=== PATIENT | female | born 1985 | race Caucasian/White ===

== ENCOUNTER 2021-03-24 12:03 | Emergency (ER) | payer SELFPAY ==
[2021-03-24 12:10] VITALS: BP 126/88; PULSE 93; RESP 16; TEMP 36.6; O2SAT 98; BMI 28.3
--- NOTE | 2021-03-24 12:20 | W.ED.ABDPA2 ---
HPI - Abdominal Pain General: Chief Complaint: Abdominal Pain Stated Complaint: ABD Pain Time Seen by Provider: 03/24/21 12:20 History of Present Illness: MD elicited complaint: abdominal pain Onset (ago): day(s) (2.5) Pain Consistency: intermittent Location: RLQ Severity: moderate Quality: aching Migration to: no migration Associated Symptoms: Reports change in stool character and diarrhea; Denies chills and fever(s) Related Data: Date of Last Menstrual Period: 03/12/21 Review of Systems Const: Denies: fever(s) or chills GI: Reports: diarrhea and change in stool character : Denies: difficulty voiding PENDING SALE TO [facility] Female Reproductive History: Date of last menstrual period: 03/12/21 Physical Exam Const: COMMON NORMALS: no acute distress, patient oriented x3, no limitations and alert GENERAL APPEARANCE: cooperative and comfortable ORIENTATION/CONSCIOUSNESS: Yes awake, Yes oriented to person, Yes oriented to place and Yes oriented to time HENMT: COMMON NORMALS: normocephalic, atraumatic, external ears normal, EAC's normal, TM's normal bilaterally and Normal external nose present HEAD & SCALP: normal to inspection, normocephalic and atraumatic FACE & SINUS: normal facial exam, sinuses nontender and face symmetric NOSE: Normal external nose present, Normal nares present and No nasal discharge present EXTERNAL EAR: Yes external ears normal EXTERNAL AUDITORY CANAL: EAC's normal TYMPANIC MEMBRANE: TM's normal bilaterally MOUTH: Normal oral and palatal mucosa present, lip normal and tongue normal THROAT: posterior oropharynx normal, tonsils normal and uvula midline Eye: COMMON NORMALS: Equal, round and reactive pupils present, EOMs intact bilaterally and conjunctivae normal GENERAL EYE: appearance normal, both eyes and all related structures and normal light reflex EYELID: eyelids normal CONJUNCTIVA: Yes conjunctivae normal PUPIL: Yes Equal, round and reactive pupils present EOM: Yes EOM abnormal DIRECT OPHTHALMOSCOPY: Yes normal light reflex Neck/C-Spine: COMMON NORMALS: full ROM, no lymphadenopathy, supple, no meningeal signs, no JVD and Thyroid normal GENERAL: Yes normal visual inspection THYROID: Thyroid normal CERVICAL SPINE: Yes cervical ROM normal and Yes normal cervical lordosis Lymph: LYMPHATIC: no lymphadenopathy noted Chest: COMMONS NORMALS: normal inspection of the chest and normal palpation of entire chest wall Resp: COMMON NORMALS: normal respiratory effort, No retractions and clear to auscultation bilaterally AUSCULTATION: clear to auscultation bilaterally Cardio: COMMON NORMALS: no JVD, regular rate, regular rhythm, S1 normal heart sound present, S2 normal heart sound present, No gallops present (Cardio), No clicks present (Cardio), No murmurs present (Cardio), No rub (Cardio) and Peripheral pulses 2+ throughout RATE: regular rate RHYTHM: regular rhythm HEART SOUNDS: S1 normal heart sound present and S2 normal heart sound present PERIPHERAL PULSES: Peripheral pulses 2+ throughout GI: COMMON NORMALS: Normal to inspection, nondistended, normoactive bowel sounds present, Soft to palpation, non-tender and no masses PALPATION: Yes Soft to palpation, Yes Tenderness to palpation present (GI) Details: RLQ, Yes Guarding due to palpation present (GI) in the RLQ and Yes Rebound tenderness present : COMMON NORMALS: Yes no CVA tenderness and Yes normal external appearance BLADDER/KIDNEY EXAM: Yes no CVA tenderness Back/Pelvis: COMMON NORMALS: no CVA tenderness, thoracic and lumbar spine normal to inspection, no thoracic nor lumbar tenderness and thoraco-lumbar ROM normal Extremity: COMMON NORMALS: normal to inspection, full ROM, capillary refill normal, no joint enlargement, no clubbing, cyanosis or edema, no calf tenderness and no pedal edema GENERAL: Yes normal exam except as noted Neuro: COMMON NORMALS: patient oriented x3, moves all extremities, no focal motor deficits, no sensory deficits noted and gait normal SENSORIUM/ORIENTATION: Yes alert, Yes oriented to person, Yes oriented to place and Yes oriented to time MENINGEAL SIGNS: Yes no meningeal signs Psych: COMMON NORMALS: mental status grossly normal, Normal thought process present, cooperative, normal affect, speech normal and activity/motor behavior normal SPEECH: Yes normal speech THOUGHT PROCESS: Normal thought process present Skin: COMMON NORMALS: no rashes or lesions noted, no wounds and turgor normal GENERAL SKIN EXAM: no rashes or lesions noted and turgor normal Course ED course: Pt presents to ER with complaints of RLQ pain increasing since Sunday. She states as long as she remains still her pain subsides but with movement it intensifies. She remains rigid and sitting up while examining. Notes lose stools. She is 2 weeks from period. Does not deny chance of . Labs and imaging ordered. Pt denies pain intervention at this time. Reevaluation(s): Reevaluation #1: CT ordered of abd and pelvis as appendix was not appreciated during US. Time: 14:39 Reevaluation #2: Pt CT shows 2mm calcification of the right UV junction which could correlate to her pain. However, a secondary finding is Right lower lobe pneumonia and small infiltrate of the left lung. We will proceed with tx for pneumonia as this could be an atypical presentation with RLQ pain on exertion; or a result of a renal stone. Proceed with DC. Close follow up with PCP. Time: 16:10 Vital Signs: Vital signs: Vital Signs Temperature 97.9 F 03/24/21 12:10 Pulse Rate 93 03/24/21 12:10 Respiratory Rate 16 03/24/21 12:10 Blood Pressure 126/88 03/24/21 12:10 Pulse Oximetry 98 03/24/21 12:10 MDM - Abdominal Pain Lab Data: Labs: Lab Results 03/24/21 03/24/21 03/24/21 12:57 12:57 14:07 WBC 6.2 10^3/uL 10^3/ uL (4.0-10.0) RBC 4.84 10^6/uL 10^6 /uL (4.1-5.3) Hgb 14.0 g/dL g/dL (11.5-15.3) Hct 42.3 % % (37.0-47.0) MCV 87.4 fl fl (81-99) MCH 28.9 pg pg (28.0-34.0) MCHC 33.1 g/dL g/dL (30.0-36.0) RDW 12.2 % % (12.1-15.1) Plt Count 147 10^3/cmm 10^3 /cmm (130-400) MPV 10.9 fL H fL (7.4-10.4) Neut % (Auto) 68.8 % % Lymph % (Auto) 22.7 % % [place] % (Auto) 6.5 % % Eos % (Auto) 1.3 % % Baso % (Auto) 0.2 % % Neut # (Auto) 4.26 10^3/uL 10^3 /uL (1.8-7.7) Lymph # (Auto) 1.4 10^3/uL 10^3/ uL (0.8-4.8) [place] # (Auto) 0.4 10^3/uL 10^3/ uL (0.2-0.9) Eos # (Auto) 0.1 10^3/uL 10^3/ uL (0.0-0.8) Baso # (Auto) 0.0 10^3/uL 10^3/ uL (0.0-0.1) Nucleated RBC % (a uto) 0 % % Nucleated RBCs # 0.0 /100WBC /100W BC Sodium Potassium Chloride Carbon Dioxide Anion Gap BUN Creatinine GFR Calculation Glucose Calculated Osmolal ity Calcium Total Bilirubin AST ALT Alkaline Phosphata se C-Reactive Protein Total Protein Albumin Globulin Amylase Lipase HCG, Qual Negative (Negative) Urine Color Yellow (Yellow) Urine Appearance Cloudy (CLEAR) Urine pH 6 (5-7) Ur Specific Gravit y 1.020 (1.005-1.030) Urine Protein Neg (Negative) Urine Glucose (UA) Norm (Normal) Urine Ketones 2+ H (Negative) Urine Blood Neg (Negative) Urine Nitrate Negative (Negative) Urine Bilirubin Neg (Negative) Urine Urobilinogen Norm mg/dL mg/dL (Negative) Ur Leukocyte Dayana ase Trace H (Negative) Urine RBC None /hpf /hpf (0-2) Urine WBC 0-4 /hpf H /hpf (0-5) Ur Squamous Epith Cells None /hpf /hpf (0-5) Amorphous Sediment 4+ /hpf /hpf Urine Bacteria None /hpf /hpf (NONE) 03/24/21 14:07 WBC RBC Hgb Hct MCV MCH MCHC RDW Plt Count MPV Neut % (Auto) Lymph % (Auto) [place] % (Auto) Eos % (Auto) Baso % (Auto) Neut # (Auto) Lymph # (Auto) [place] # (Auto) Eos # (Auto) Baso # (Auto) Nucleated RBC % (a uto) Nucleated RBCs # Sodium 141 mmol/L mmol/L (136-145) Potassium 3.8 mmol/L mmol/L (3.5-5.1) Chloride 104 mmol/L mmol/L (98-107) Carbon Dioxide 25 mmol/L mmol/L (22-29) Anion Gap 15.8 (5-19) BUN 6 mg/dL mg/dL (6-20) Creatinine 0.7 mg/dL mg/dL (0.5-0.9) GFR Calculation 94.2 mL/min mL/mi n (90-130) Glucose 79 mg/dL mg/dL (65-115) Calculated Osmolal ity 289 mOsm/kg mOsm/ kg (285-295) Calcium 8.2 mg/dL L mg/dL (8.5-10.5) Total Bilirubin 0.4 mg/dL mg/dL (0.15-1.2) AST 14 U/L U/L (0-32) ALT 14 U/L U/L (0-33) Alkaline Phosphata se 49 IU/L IU/L (35-105) C-Reactive Protein 44.9 mg/L H mg/L (0.0-4.9) Total Protein 6.8 g/dL g/dL (6.6-8.7) Albumin 4.1 g/dL g/dL (3.5-5.2) Globulin 2.7 g/dL g/dL (1.3-4.6) Amylase 41 U/L U/L (28-100) Lipase 13 U/L U/L (13-60) HCG, Qual Urine Color Urine Appearance Urine pH Ur Specific Gravit y Urine Protein Urine Glucose (UA) Urine Ketones Urine Blood Urine Nitrate Urine Bilirubin Urine Urobilinogen Ur Leukocyte Dayana ase Urine RBC Urine WBC Ur Squamous Epith Cells Amorphous Sediment Urine Bacteria Imaging Data ^: US: Radiologist's impression: [address] [address] Ultrasound Report Signed Patient: Jeniffer De Los Santos Unit #: [id number] : 1985 Age/Sex: 36 / F ADM Date: 03/24/21 Loc: ER Room/Bed: Attending Dr: Ordering Provider/Ordering MD: Micaela Monsalve NP Date of Service: 03/24/21 Procedure(s): US appendix 52534 Accession Number(s): [id number] Report Number: [id number] WS: [id number] Ultrasound abdomen, limited. History: RIGHT lower quadrant pain. Comparison: None. Ultrasound is directed to the RIGHT lower quadrant in the area of pain. There is a very low attenuation tubular structure in the RIGHT lower quadrant. There is some increased vascularity. This does not have the appearance of a typical appendicitis. This is a very elongated loop of probable small bowel. There is mild fluid distention with a few minimally mobile echoes. No adjacent free fluid. There is no fluid in Morison's pouch. The appendix is not identified. US/US appendix [id number] IMPRESSION: 1. The appendix is not definitely identified. 2. There is a very elongated tubular area of decreased echogenicity in the RIGHT lower quadrant. Not a typical appearance for appendicitis. This may be an aperistaltic small bowel loop. Recommend follow-up CT abdomen and pelvis with contrast. Dictated By: Milvia Eugene DO Signed By: Milvia Eugene DO Signed Date/Time: 03/24/211424 DD/ 22 CT Abd/Pel: Radiologist's impression: [address] [address] [address] Scan Report Signed Patient: Jeniffer De Los Santos Unit #: [id number] : 1985 Age/Sex: 36 / F ADM Date: 03/24/21 Loc: ER Room/Bed: Attending Dr: Ordering Provider/Ordering MD: Micaela Monsalve NP Date of Service: 03/24/21 Procedure(s): CT abdomen pelvis w con* [id number] Accession Number(s): [id number] Report Number: [id number] WS: [id number] CT ABDOMEN AND PELVIS WITH CONTRAST HISTORY: RLQ pain TECHNIQUE: Imaging performed of the abdomen and pelvis with IV contrast. Single phase imaging of the abdomen. Coronal and sagittal reformats are submitted. All CT scans at [facility] use at least one of these dose optimization techniques: automated exposure control; mA and/or kV adjustment per patient size (includes targeted exams where dose is matched to clinical indication); or iterative reconstruction. IV CONTRAST: Omnipaque 300; 95 mL IV. Oral contrast: No DLP: 1237.14 mGy.cm COMPARISON: None available. Lower thorax: RIGHT lower lobe focal pneumonia. There is a very tiny increased opacification at the LEFT lung base. No effusion. Heart is normal size. No hiatal hernia. Liver/biliary system: Normal size with no intrahepatic dilatation. Gallbladder: Normal. No gallstones or wall thickening. No pericholecystic fluid. Pancreas: Normal size pancreas and pancreatic duct. No adjacent inflammation. Spleen: Normal size spleen. No mass or infarct. Adrenal glands: Normal. Right kidney: Too small to characterize hypodensity in the central kidney. No obstruction. Left kidney: Normal. Aorta: Normal. Lymphadenopathy: None. Free fluid: None. GI tract: Normal appendix. No adjacent inflammation. There are mildly prominent small bowel loops in the LEFT lower quadrant. Mild distention of the cecum with feces. No abnormal loops of GI tract. No GI tract obstruction. Abdominal wall: Unremarkable abdominal wall. No hernia. Pelvis: Anteverted uterus is mildly enlarged at approximately 7 cm in length. LEFT measures 3.2 x 2.2 cm. The RIGHT ovary is normal size. There is a very tiny, 2 mm calcification near the LEFT ureterovesical junction. No associated hydronephrosis. Potentially could represent a small calcification at the UV junction. Also may be a phlebolith. Bones: Unremarkable. CT/CT abdomen pelvis w con* [id number] IMPRESSION: 1. Normal appendix. 2. No GI tract obstruction. 3. No renal obstruction. 4. RIGHT lower lobe subsegmental pneumonia. Minimal opacification at the LEFT lung base. Probably developing pneumonia or pneumonitis. 5. 2 mm calcification near the RIGHT UV junction. This could potentially be within the very distal ureter or a phlebolith. Very difficult to determine location based upon its size. Notified Micaela Monsalve at 03/24/2021 3:17 PM. Dictated By: Milvia Eugene DO Signed By: Milvia Eugene DO Signed Date/Time: 03/24/21 1523 Discharge Plan Discharge Patient Disposition: Home Clinical Impression: Calculus of kidney, Abdominal pain, Pneumonia Condition: Stable Prescriptions: New doxycycline hyclate 100 mg capsule 100 mg PO BID 10 Days Qty: 20 RF: 0 Discharge Orders: Discharge ED (Routine); Ordered 03/24/21 Ordered By: Micaela Monsalve Discharge Diet: Advance as tolerated and Clear Liquid Discharge Activity: Increase activity as tolerated Patient Instructions: Abdominal Pain (ED), Opioid Safety Activity Restrictions/Additional Instructions: Please ensure follow up with your primary care provider If you develop worsening in symptoms please return Watch for nausea, vomiting, diarrhea, and fever; increased pain. Strain urine for the next several days to see if stone is passed. Coding Level of Care Code ED Nutrition Services Assistant for Chg Fwd Exam Comprehensive
--- NOTE | 2021-03-24 12:40 | US_ITS ---
WS: [id number] TRANSABDOMINAL PELVIC ULTRASOUND HISTORY: rlq pain COMPARISON: None available. Uterus: 11.3 cm x 7.0 cm x 5.0 cm. Uterus is anteverted and slightly enlarged. Uterus is well visuali zed on transabdominal imaging. No fibroid or mass. Endometrium: 1.0 cm. Normal homogeneity and size. Right ovary: 2.3 cm x 2.5 cm x 2.0 cm; no solid or cystic mass. Normal vascularity. Left ovary: 5.8 cm x 3.2 cm x 4.3 cm; daughter cyst LEFT ovary. Cyst measures 3.0 x 2.3 x 2.7 cm. Nor mal vascularity. No free fluid in the cul-de-sac. US/US pelvic complete* [id number] IMPRESSION: 1. Mildly enlarged anteverted uterus. 2. LEFT ovarian cyst. Maximum diameter 3.0 cm. 3. No free fluid.
--- NOTE | 2021-03-24 12:40 | US_ITS ---
WS: [id number] Ultrasound abdomen, limited. History: RIGHT lower quadrant pain. Comparison: None. Ultrasound is directed to the RIGHT lower quadrant in the area of pain. There is a very low attenuati on tubular structure in the RIGHT lower quadrant. There is some increased vascularity. This does not have the appearance of a typical appendicitis. This is a very elongated loop of probable small bowel. There is mild fluid distention with a few minimally mobile echoes. No adjacent free fluid. There is no fluid in Morison's pouch. The appendix is not identified. US/US appendix [id number] IMPRESSION: 1. The appendix is not definitely identified. 2. There is a very elongated tubular area of decreased echogenicity in the RIG HT lower quadrant. Not a typical appearance for appendicitis. This may be an ap eristaltic small bowel loop. Recommend follow-up CT abdomen and pelvis with con trast.
[2021-03-24 13:14] LABS: HCG Qualitative Urine. Negative (Negative)
[2021-03-24 14:16] LABS: Basophils % 0.2 %; Eosinophils # 0.1 10^3/uL (0.0-0.8); Eosinophils % 1.3 %; Hematocrit 42.3 % (37.0-47.0); Lymphocytes # 1.4 10^3/uL (0.8-4.8); Lymphocytes % 22.7 %; Mean Corpuscular HGB Conc 33.1 g/dL (30.0-36.0); Mean Corpuscular Hemoglobin 28.9 pg (28.0-34.0); Mean Corpuscular Volume 87.4 fl (81-99); Mean Platelet Volume 10.9 fL (7.4-10.4); Monocytes # 0.4 10^3/uL (0.2-0.9); Monocytes % 6.5 %; Neutrophils # 4.26 10^3/uL (1.8-7.7); Neutrophils % 68.8 %; Nucleated Red Blood Cells % 0 %; Platelet Count 147 10^3/cmm (130-400); Red Blood Count 4.84 10^6/uL (4.1-5.3); Red Cell Distribution Width 12.2 % (12.1-15.1); White Blood Count 6.2 10^3/uL (4.0-10.0)
--- NOTE | 2021-03-24 14:32 | CT_ITS ---
WS: [id number] CT ABDOMEN AND PELVIS WITH CONTRAST HISTORY: RLQ pain TECHNIQUE: Imaging performed of the abdomen and pelvis with IV contrast. Single phase imaging of the abdomen. Coronal and sagittal reformats are submitted. All CT scans at [facility] use at [address] one of these dose optimization techniques: automated exposure control; mA and/or kV adjustment per patient size (includes targeted exams where dose is matched to clinical indication); or iterative re construction. IV CONTRAST: Omnipaque 300; 95 mL IV. Oral contrast: No DLP: 1237.14 mGy.cm COMPARISON: None available. Lower thorax: RIGHT lower lobe focal pneumonia. There is a very tiny increased opacification at the L EFT lung base. No effusion. Heart is normal size. No hiatal hernia. Liver/biliary system: Normal size with no intrahepatic dilatation. Gallbladder: Normal. No gallstones or wall thickening. No pericholecystic fluid. Pancreas: Normal size pancreas and pancreatic duct. No adjacent inflammation. Spleen: Normal size spleen. No mass or infarct. Adrenal glands: Normal. Right kidney: Too small to characterize hypodensity in the central kidney. No obstruction. Left kidney: Normal. Aorta: Normal. Lymphadenopathy: None. Free fluid: None. GI tract: Normal appendix. No adjacent inflammation. There are mildly prominent small bowel loops in the LEFT lower quadrant. Mild distention of the cecum with feces. No abnormal loops of GI tract. No G I tract obstruction. Abdominal wall: Unremarkable abdominal wall. No hernia. Pelvis: Anteverted uterus is mildly enlarged at approximately 7 cm in length. LEFT measures 3.2 x 2.2 cm. The RIGHT ovary is normal size. There is a very tiny, 2 mm calcification near the LEFT ureterove sical junction. No associated hydronephrosis. Potentially could represent a small calcification at th e UV junction. Also may be a phlebolith. Bones: Unremarkable. CT/CT abdomen pelvis w con* [id number] IMPRESSION: 1. Normal appendix. 2. No GI tract obstruction. 3. No renal obstruction. 4. RIGHT lower lobe subsegmental pneumonia. Minimal opacification at the LEFT lung base. Probably developing pneumonia or pneumonitis. 5. 2 mm calcification near the RIGHT UV junction. This could potentially be wi thin the very distal ureter or a phlebolith. Very difficult to determine locati on based upon its size. Notified Micaela Monsalve at 03/24/2021 3:17 PM.
[2021-03-24 14:43] LABS: Alanine Aminotransferase 14 U/L (0-33); Albumin Level 4.1 g/dL (3.5-5.2); Alkaline Phosphatase 49 IU/L (35-105); Amylase 41 U/L (28-100); Anion Gap 15.8 (5-19); Aspartate Amino Transferase 14 U/L (0-32); Blood Urea Nitrogen 6 mg/dL (6-20); C Reactive Protein 44.9 mg/L (0.0-4.9); Calcium 8.2 mg/dL (8.5-10.5); Carbon Dioxide 25 mmol/L (22-29); Chloride 104 mmol/L (98-107); Globulin 2.7 g/dL (1.3-4.6); Glomerular Filtration Rate 94.2 mL/min (90-130); Glucose 79 mg/dL (65-115); Lipase 13 U/L (13-60); Osmolality Calculated 289 mOsm/kg (285-295); Potassium 3.8 mmol/L (3.5-5.1); Sodium 141 mmol/L (136-145); Total Bilirubin 0.4 mg/dL (0.15-1.2); Total Protein 6.8 g/dL (6.6-8.7)
[2021-03-24] MEDS: iohexol 300 mg/mL 100 mL Btl IV (14:44)
[2021-03-24 15:56] LABS: Add Urine Microscopic? YES; Bilirubin Urine Neg (Negative); Blood Urine Neg (Negative); Glucose Urine UA Norm (Normal); Ketones Urine 2+ (Negative); Leukocyte Esterase Urine Trace (Negative); Nitrate Urine Negative (Negative); Protein Urine Neg (Negative); Urine Appearance Cloudy (CLEAR); Urine Color Yellow (Yellow); Urobilinogen Urine Norm (Negative); pH Urine 6 (5-7)
[2021-03-24 15:57] LABS: Add Urine Culture? No; Amorphous Sediment Urine 4+ /hpf; WBC Urine 0-4 /hpf (0-5)
[2021-03-24 16:42] VITALS: BP 102/83; PULSE 94; RESP 14; O2SAT 100
== END 2021-03-24 14:26 | disposition home or self-care (01) ==
PROVIDERS: Emergency Provider Nurse Practitioner Family
DX: N20.0 Calculus of kidney (principal); J18.9 Pneumonia, unspecified organism
CPT/HCPCS: 74177; 76705; 76856; 80053; 81001; 81025; 82150; 83690; 85025; 86140; 99283; Q9967

== ENCOUNTER 2023-11-06 16:37 | Inpatient (IN) | payer SELFPAY ==
[2023-11-06] VITALS (10 sets, daily range): BP systolic 126–149; BP diastolic 85–92; PULSE 86–104; RESP 18; BMI 31.2
--- NOTE | 2023-11-06 | USR_ITS ---
NOTE: Report was unsigned for reason: Order was edited. Original Signature date and time was: 11/06/23 @ 1512 ADDENDUM Addendum Dictated By: Addendum Signed By: Signed Date/Time: Addendum Cosigned By: Nickolas Benoit MD 11/07/231455 ADDENDUM Addendum Dictated By: Addendum Signed By: Signed Date/Time: Addendum Cosigned By: Nickolas Benoit MD 11/06/231652 ADDENDUM US/ OB lmt with transvaginal THIS REPORT CONTAINS FINDINGS THAT MAY BE CRITICAL TO PATIENT CARE. The findings were verbally communicated via telephone conference with MARILU DESHPANDE at 4:52 PM CDT on 11/06/2023. The findings were acknowledged and understood. Addendum Dictated By: Nickolas Benoit MD Addendum Signed By: Nickolas Benoit MD Signed Date/Time: 11/07/23 145 Addendum Cosigned By: ADDENDUM US/ OB lmt with transvaginal THIS REPORT CONTAINS FINDINGS THAT MAY BE CRITICAL TO PATIENT CARE. The findings were verbally communicated via telephone conference with MARILU DESHPANDE at 4:52 PM CDT on 11/06/2023. The findings were acknowledged and understood. Addendum Dictated By: Nickolas Benoit MD Addendum Signed By: Nickolas Benoit MD Signed Date/Time: 11/06/231652 Addendum Cosigned By: PROCEDURE INFORMATION: Exam: US , Limited Exam date and time: 11/06/2023 3:12 PM Age: 38 years old Clinical indication: Screening exam; Routine US, uterus; Additional info: Late care, placental location, previa previously noted LABS AND CLINICAL REPORTS: Gestational age (Established): 34 w 3 d Estimated due date (Established): 12/15/2023 TECHNIQUE: Imaging protocol: Real-time ultrasound of the maternal uterus with image documentation. Exam focused on the clinical indication. COMPARISON: US pelvic complete* [id number] 03/24/2021 1:23 PM FINDINGS: Gestation: Intrauterine gestation. heart rate: 135 bpm presentation and position: Breech presentation. Placenta: Anterior placenta. The margin of the placenta appears to cover the internal cervical os. Amniotic fluid index: BANDAR is 21.6 cm. Maximum vertical pocket 6.6 cm. BIOPHYSICAL PROFILE: breathing (BPP): 2/2 gross body movement (BPP): gross body movement: 2/2 tone (BPP): 2/2 heart rate reactivity (BPP): heart rate reactivity: 2/2 MATERNAL: Cervix: Cervical length measures 4.4 cm. US/US OB lmt with transvaginal IMPRESSION: 1. Single live intrauterine gestation in breech presentation. 2. Biophysical profile 10/24. 3. Placenta previa. 4. Normal heart rate. Dictated By: Nickolas Benoit MD Signed By: Nickolas Benoit MD Signed Date/Time: 11/07/23 1456 DD/ 1512 MTDD
--- NOTE | 2023-11-06 15:00 | USR_ITS ---
PROCEDURE INFORMATION: Exam: US , Limited Exam date and time: 11/06/2023 3:12 PM Age: 38 years old Clinical indication: Screening exam; Routine US, uterus; Additional info: Late care, placental location, previa previously noted LABS AND CLINICAL REPORTS: Gestational age (Established): 34 w 3 d Estimated due date (Established): 12/15/2023 TECHNIQUE: Imaging protocol: Real-time ultrasound of the maternal uterus with image documentation. Exam focused on the clinical indication. COMPARISON: US pelvic complete* [id number] 03/24/2021 1:23 PM FINDINGS: Gestation: Intrauterine gestation. heart rate: 135 bpm presentation and position: Breech presentation. Placenta: Anterior placenta. The margin of the placenta appears to cover the internal cervical os. Amniotic fluid index: BANDAR is 21.6 cm. Maximum vertical pocket 6.6 cm. BIOPHYSICAL PROFILE: breathing (BPP): 2/2 gross body movement (BPP): gross body movement: 2/2 tone (BPP): 2/2 heart rate reactivity (BPP): heart rate reactivity: 2/2 MATERNAL: Cervix: Cervical length measures 4.4 cm. US/US OB lmt with transvaginal IMPRESSION: 1. Single live intrauterine gestation in breech presentation. 2. Biophysical profile 10/24. 3. Placenta previa. 4. Normal heart rate.
[2023-11-06 15:09] LABS: Basophils % 0.3 %; Eosinophils # 0.1 10^3/uL (0.0-0.8); Eosinophils % 0.8 %; Hematocrit 41.9 % (36-47); Lymphocytes # 1.6 10^3/uL (0.8-4.8); Mean Corpuscular HGB Conc 35.8 g/dL (30-55); Mean Corpuscular Hemoglobin 31.8 pg (27-33); Mean Platelet Volume 10.6 fL (7.4-10.4); Monocytes # 0.6 10^3/uL (0.2-0.9); Monocytes % 5.7 %; Neutrophils # 7.62 10^3/uL (1.8-7.7); Neutrophils % 76.6 %; Nucleated Red Blood Cells % 0 %; Platelet Count 142 10^3/cmm (157-399); Red Blood Count 4.71 10^6/uL (3.85-5.65); Red Cell Distribution Width 12.5 % (12.1-15.1); White Blood Count 9.95 10^3/uL (3.29-11.43)
--- NOTE | 2023-11-06 15:56 | ANES.PREANE2 ---
Pre-Anesthetic Assessment Height/Weight: Height 1.65 m Weight 85.275 kg Familial anesthetic complications: none Was Beta Flor taken within 24 hours: N/A Was Clonidine taken within 24 hours: N/A Last intake: 0800 Social No alcohol and No tobacco Exam alert, oriented x 3, clear to auscultation bilaterally and regular rate & rhythm Airway Mallampati: Class II Dentition: false Anesthetic Plan ASA status: 2 Anesthesia: Regional (specify below) Other: Multigravida patient with placenta previa, open cervix, and vaginal bleeding Risk of > 500 ml blood loss (7ml/kg in children): Yes, adequate IV access and fluids planned [facility] Anesthesia Female Reproductive History : 8 Data Anesthesia 11/06/23 14:45 Short CBC 11/06/23 Range/Units 14:45 WBC 9.95 (3.29-11.43) 10^3/uL Hgb 15.00 (11.27-16.99) g/dL Hct 41.9 (36-47) % MCV 89.0 (85-98) fl Plt Count 142 L (157-399) 10^3/cmm Neut % (Auto) 76.6 % Neut # (Auto) 7.62 (1.8-7.7) 10^3/uL Cardiac Studies: No Data to Display
[2023-11-06] MEDS: lactated ringers 1,000 ML 999 ML IV (15:57)
[2023-11-06] MEDS: betamethasone susp 6 mg/mL 1 mL (per mL) 12 MG IM (16:37)
--- NOTE | 2023-11-06 16:59 | P.HP_ITS ---
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 The patient is an [facility] woman who began receiving care less than 3 weeks ago. She reached out to her nurse farm worker due to some vaginal bleeding. An ultrasound was performed and she was found to have a grade 1 placenta previa based on an abdominal ultrasound. The nurse farm worker told the patient she is uncomfortable take care of her due to the placenta location and she reach out to me to see if would be willing to care for the patient. I told her that I be willing to evaluate the patient and presumably care of her. I saw the patient in my office today. She once again blood this morning. She could not quantify the amount of blood that occurred. But based on this being her second bleed with a presumed placenta previa, the patient was sent to the hospital for further evaluation. During the evaluation in the hospital, she was found to have a grade 3-4 placenta previa and was noted to have purple blood in the vaginal vault. I discussed with the patient and her the situation and we talked about the probable need of her child to be transferred after delivery. We also discussed the increased capacity of the blood bank in [place] as well given the propensity for placenta previous to bleed. With this information, they agreed to have her transferred to [place] via ground transport only as they do not believe in using helicopters. I let them know that I prefer to transfer via helicopter but since there is no sign of active bleeding I felt it was still reasonable to transfer the patient via ground transport rather than to perform the section here prior to probable transfer the infant. Present Details : 8 Para: 7 Labs Blood type OB HPI: 0 (-) negative Rubella: Immune RPR: Negative GBS: Unknown HBsAG: Negative Review of Systems 2 General: Reports: 10 or more systems reviewed and unremarkable except in HPI and below Const: Reports: fatigue; Denies: fever(s) Eyes: Denies: change in vision Card: Denies: chest pain : Reports: vaginal bleeding Musc: Reports: back pain Gabino/Lymph: Denies: easy bruising Medications/Allergies Home Medications Medication Instructions Recorded Confirmed Last Taken Type No Known Home Medications 11/06/23 11/06/23 Unknown History Allergies Allergy/AdvReac Type Severity Reaction Status Date / Time No Known Allergies Allergy Verified 11/06/23 16:06 Vitals/I&O/Wt Last Vital Signs Pulse 90 11/06/23 16:44 Resp 18 11/06/23 15:44 BP 133/88 11/06/23 16:44 O2 Del Method Room Air 11/06/23 16:04 Weight last 48 hrs Weight 188 lb Physical Exam 2 Const: COMMON NORMALS: patient oriented x3 and alert HENMT: COMMON NORMALS: moist oral mucous membranes HEAD & SCALP: normal to inspection Chest: COMMONS NORMALS: normal inspection of the chest Resp: COMMON NORMALS: clear to auscultation bilaterally AUSCULTATION: clear to auscultation bilaterally Cardio: COMMON NORMALS: regular rate and regular rhythm RATE: regular rate RHYTHM: regular rhythm GI: INSPECTION: Yes normal to inspection and Yes other (Gravid) : OTHER: A gentle exam of the cervix found that it was 3 cm dilated, approximately 50% effaced, -3 station Extremity: COMMON NORMALS: normal to inspection GENERAL: Yes edema (Trace) Neuro: COMMON NORMALS: patient oriented x3, moves all extremities and no sensory deficits noted SENSORIUM/ORIENTATION: Yes alert Psych: COMMON NORMALS: mental status grossly normal Skin: COMMON NORMALS: no rashes or lesions noted GENERAL SKIN EXAM: no rashes or lesions noted Data 11/06/23 14:45 Other data: An ultrasound revealed a biophysical profile of 8 out of 8. heart tones have demonstrated good short-term and long-term variability with accelerations. labs that were performed via the nurse farm worker have been copied Results Labs OB ([facility]): 2 Obstetrics US 11/06/23 Blood Type O Negative 11/06/23 Antibody Screen Negative 11/06/23 Hct 41.9 % (36-47) 11/06/23 Hgb 15.00 g/dL (11.27-16.99) 11/06/23 Rho(D) Type Rh negative 11/06/23 Plt Count 142 10^3/cmm (157-399) L 11/06/23 HCG, Qual Negative (Negative) 03/24/21 A&P Assessment and plan (1) 34 weeks gestation of : (2) Placenta previa antepartum: (3) Advanced maternal age in multigravida: Plan The patient is being transferred to [place]. I discussed the patient with Dr. Linton who has agreed to accept the transfer pending discussion with her nurses. Attestations 2 Medical Necessity Statement*: The patient will be transferred to [place] within the next few hours. Please except this is a short stay summary. Coding Level of Care Code Acute Code for Chg Fwd Diagnoses 34 weeks gestation of Z3A.34 Placenta previa antepartum O44.00 Advanced maternal age in multigravida O09.529
== END 2023-11-06 18:15 | disposition short-term general hospital (02) | DRG 833 ==
LOC: OPOB 16:37 → OBGYN 16:37
PROVIDERS: Admitting Provider Family Medicine; Visit Provider Family Medicine
DX: O44.23 Partial placenta previa NOS or without hemorrhage, third trimester (principal); O09.523 Supervision of elderly multigravida, third trimester; Z3A.34 34 weeks gestation of pregnancy
CPT/HCPCS: 36415; 59025; 76815; 76817; 76819; 85025; 86850; 86900; 86920; 96372; 99211; J0171; J0702; J2274; J3010; J7120